=== PATIENT | male | born 1955 | race Caucasian/White ===

== ENCOUNTER 2016-07-30 22:54 | Inpatient (IN) | payer OTHER ==
[~2016-07-30] VITALS: Ht 154.9 cm; Wt 74.8 kg
[2016-07-30 23:44] LABS: BASOPHIL % 0.4 % (0-2); PLATELET COUNT 153 x10^3mcL (130-400); RED CELL DISTRIBUTION WIDTH 13.6 % (11.5-14.5)
[2016-07-30 23:49] LABS: CALCIUM 8.6 mg/dL (8.5-10.1); CARBON DIOXIDE 23.1 mmol/L (21-32); CHLORIDE SERUM 108 mmol/L (98-107); CREATININE SERUM 0.7 mg/dL (0.7-1.3); GFR1 > 60 mL/min; GLUCOSE SERUM 133 mg/dL (74-106); POTASSIUM SERUM 3.6 mmol/L (3.5-5.1); SODIUM SERUM 143 mmol/L (136-145)
[2016-07-30 23:54] LABS: ALBUMIN 3.9 g/dL (3.4-5.0); ALKALINE PHOSPHATASE 98 U/L (46-116); ALT/SGPT 68 U/L (16-63); AST/SGOT 25 U/L (15-37)
[2016-07-30 23:55] LABS: TOTAL PROTEIN, SERUM 3.8 g/dL (6.4-8.2)
[2016-07-31 02:08] VITALS: BP 126/72
[2016-07-31 03:09] LABS: AMYLASE 58 U/L (25-115); CHOLESTEROL 176 mg/dL (<200); CHOLESTEROL/HDL RATIO 6.1; HDL CHOLESTEROL 29 mg/dL (40-60); LIPASE 139 IU/L (73-393); TRIGLYCERIDES 436 mg/dL (<150)
[2016-07-31 03:17] LABS: T3 TOTAL 1.31 ng/mL
[2016-07-31 03:20] LABS: FREE T4 0.89 ng/dL (0.76-1.46); FREE THYROXINE INDEX 2.5 ug/dL (1.4-4.5); T4(THYROXINE) 7.7 ug/dL (4.7-13.3)
[2016-07-31 05:49] VITALS: BP 157/85
[2016-07-31 08:28] LABS: UA SPECIFIC GRAVITY >=1.030 (1.005-1.035); microscopic required? YES; urine erythrocyte NEGATIVE (NEGATIVE)
[2016-07-31 09:01] LABS: AMPHETAMINE QUAL UR NONE DETECTED (NEG <=1000)
[2016-07-31 10:03] VITALS: BP 173/90
[2016-07-31 10:12] LABS: BASOPHIL % 0.3 % (0-2); PLATELET COUNT 165 x10^3mcL (130-400); RED CELL DISTRIBUTION WIDTH 13.3 % (11.5-14.5)
[2016-07-31 10:24] LABS: CALCIUM 8.7 mg/dL (8.5-10.1); CHLORIDE SERUM 108 mmol/L (98-107); CREATININE SERUM 0.8 mg/dL (0.7-1.3); GFR1 > 60 mL/min; GLUCOSE SERUM 107 mg/dL (74-106); PHOSPHOROUS 2.9 mg/dL (2.5-4.9); POTASSIUM SERUM 4.2 mmol/L (3.5-5.1); SODIUM SERUM 143 mmol/L (136-145)
[2016-07-31 13:37] VITALS: BP 158/78
[2016-07-31 18:07] VITALS: BP 146/63
[2016-07-31 21:53] VITALS: BP 151/60
[2016-08-01] VITALS (8 sets, daily range): BP systolic 115–170; BP diastolic 55–99
[2016-08-01 03:01] LABS: CALCIUM 8.4 mg/dL (8.5-10.1); CHLORIDE SERUM 106 mmol/L (98-107); CREATININE SERUM 0.9 mg/dL (0.7-1.3); GFR1 > 60 mL/min; GLUCOSE SERUM 114 mg/dL (74-106); MAGNESIUM 1.9 mg/dL (1.8-2.4); PHOSPHOROUS 3.7 mg/dL (2.5-4.9); POTASSIUM SERUM 3.7 mmol/L (3.5-5.1); SODIUM SERUM 144 mmol/L (136-145)
[2016-08-01 03:47] LABS: BASOPHIL % 0.5 % (0-2); PLATELET COUNT 157 x10^3mcL (130-400); RED CELL DISTRIBUTION WIDTH 13.6 % (11.5-14.5)
[2016-08-02 05:19] VITALS: BP 135/76
[2016-08-02 07:06] LABS: BASOPHIL % 0.5 % (0-2); PLATELET COUNT 164 x10^3mcL (130-400); RED CELL DISTRIBUTION WIDTH 13.5 % (11.5-14.5)
[2016-08-02 07:31] LABS: CALCIUM 8.8 mg/dL (8.5-10.1); CARBON DIOXIDE 28.4 mmol/L (21-32); CHLORIDE SERUM 105 mmol/L (98-107); GFR1 > 60 mL/min; GLUCOSE SERUM 104 mg/dL (74-106); POTASSIUM SERUM 3.9 mmol/L (3.5-5.1); SODIUM SERUM 143 mmol/L (136-145)
[2016-08-02 10:18] VITALS: BP 137/72
[2016-08-02] MEDS ORDERED: GOOD SENSE OMEP20 MG PO (10:24)
[2016-08-02 10:35] VITALS: BP 137/72
== END 2016-08-02 11:42 | disposition home or self-care (01) | DRG 391 ==
LOC: ED 22:54 → DU 07-31 01:06
PROVIDERS: Emergency Medicine; Family Medicine; ADMIT Family Medicine
DX: K21.9 Gastro-esophageal reflux disease without esophagitis (principal); N17.0 Acute kidney failure with tubular necrosis; I16.0 Hypertensive urgency; E78.5 Hyperlipidemia, unspecified; E66.9 Obesity, unspecified; Z68.31 Body mass index [BMI] 31.0-31.9, adult; Z87.891 Personal history of nicotine dependence
CPT/HCPCS: 80307; 83880; 84439; J0360; J1644; J7030; Q0092

== ENCOUNTER 2020-05-16 14:48 | Emergency (ER) | payer OTHER, MEDICAID ==
[~2020-05-16] VITALS: Ht 162.6 cm; Wt 80.3 kg
[~2020-05-16 14:48] MED LIST: GOOD SENSE OMEP20 MG PO
[2020-05-16 14:58] VITALS: Ht 162.6 cm; Wt 80.3 kg
[2020-05-16 16:23] LABS: BASOPHIL % 0.6 % (0.2-1.5); PLATELET COUNT 178 x10^3mcL (152-348); RED CELL DISTRIBUTION WIDTH 12.6 % (12.1-16.2)
[2020-05-16 16:32] LABS: CALCIUM 8.7 mg/dL (8.5-10.1); CARBON DIOXIDE 29.2 mmol/L (21-32); CHLORIDE SERUM 101 mmol/L (98-107); CREATININE SERUM 0.9 mg/dL (0.7-1.3); GFR1 > 60 mL/min; GLUCOSE SERUM 237 mg/dL (74-106); POTASSIUM SERUM 3.9 mmol/L (3.5-5.1); SODIUM SERUM 136 mmol/L (136-145)
[2020-05-16 16:37] LABS: ALBUMIN 3.8 g/dL (3.4-5.0); ALKALINE PHOSPHATASE 122 U/L (46-116); ALT/SGPT 107 U/L (16-63); AST/SGOT 58 U/L (15-37); BILIRUBIN TOTAL 0.36 mg/dL (0.20-1.00); TOTAL PROTEIN, SERUM 7.7 g/dL (6.4-8.2)
[2020-05-16] MEDS ORDERED: PREDNISONE5 MG PO (16:44)
[2020-05-16 17:41] VITALS: BP 173/88
== END 2020-05-16 17:41 | disposition home or self-care (01) ==
LOC: ED 14:48
PROVIDERS: Emergency Medicine
DX: G51.0 Bell's palsy (principal); I10 Essential (primary) hypertension
CPT/HCPCS: 82962; Q9967